=== PATIENT | female | born 1990 | race Caucasian/White ===

== ENCOUNTER 2021-04-03 17:47 | Emergency (ER) | payer OTHER ==
[~2021-04-03] VITALS: Ht 160 cm; Wt 59.0 kg
== END 2021-04-03 19:15 | disposition home or self-care (01) ==
LOC: ER 17:47
DX: S93.601A Unspecified sprain of right foot, initial encounter (principal); Z91.040 Latex allergy status; W17.89XA Other fall from one level to another, initial encounter
CPT/HCPCS: 73630; 99283-25